=== PATIENT | female | born 1995 | race Caucasian/White ===

== ENCOUNTER 2018-12-03 17:30 | Emergency (ER) | payer OTHER ==
[~2018-12-03] VITALS: Ht 165.1 cm; Wt 52.2 kg
[2018-12-03 17:35] VITALS: BP 132/82
[2018-12-03] MEDS ORDERED: BUSPAR10 MG ORAL (17:42)
[2018-12-03] MEDS ORDERED: ABILIFY10 MG ORAL (17:42)
--- NOTE | 2018-12-03 17:53 | Emergency Room Report ---
History of Present Illness General Chief Complaint: Behavioral Complaint Source: Patient Present Illness HPI 23-year-old female history of anxiety, depression, no suicidal attempts in the past, presents with suicidal ideations that started today, she states is been building, she has no access to weapons, no ingestions today, she states that she is worried about money, she is worried about her job, that tend to aggravate her depression, she denies any alleviating factors, she has no other complaints, no nausea no vomiting, no chest pain, no shortness of breath, no abdominal pain Allergies: Coded Allergies: PENICILLINS (Verified Allergy, Mild, Rash, 12/03/18) Patient History Past Medical History: see triage record Social History: Reports: alcohol use - social Last Menstrual Period: now Now: No Reviewed Nursing Documentation: PMH: Agreed; PSxH: Agreed Nursing Documentation-PMH Past Medical History: No History, Except For History Of Psychiatric Problem: Yes - anxiety, depression Review of Systems Constitutional: Denies: chills, fever Eye: Denies: blurred vision, double vision ENT: Denies: throat pain, nasal discharge Respiratory: Denies: cough, shortness of breath Cardiovascular: Denies: chest pain, palpitations Gastrointestinal: Denies: abdominal pain, diarrhea, nausea, vomiting Genitourinary: Denies: dysuria, pain Musculoskeletal: Denies: back pain, muscle pain Skin: Denies: rash, lesions Psychiatric: Reports: anxiety, depressed feelings, SI; Denies: HI Neurological: Denies: headache, focal weakness Hematologic/Lymphatic: Denies: easy bleeding, easy bruising All Other Systems: negative except mentioned in HPI Physical Exam Vital Signs Date Time Temp Pulse Resp B/P (MAP) Pulse Ox O2 Delivery O2 Flow Rate FiO2 12/03/18 17:35 98.1 94 18 132/82 (99) 98 Room Air Sp02 EP Interpretation: reviewed, normal General Appearance: well appearing, alert, mild distress Head: normocephalic, atraumatic Eyes: bilateral eye PERRL, bilateral eye EOMI ENT: normal pharynx, uvula midline, moist mucus membranes Neck: supple, thyroid normal, supple/symm/no masses Respiratory: lungs clear, no respiratory distress, no retraction, no accessory muscle use Cardiovascular #1: normal peripheral pulses, regular rate, rhythm, no edema, no gallop, no murmur Gastrointestinal: non tender, soft, no guarding, no rebound Musculoskeletal: normal inspection Neurologic: alert, oriented x3 Psychiatric: depressed affect, anxious, other - Suicidal Skin: no rash, warm/dry Medical Decision Making Diagnostic Impression: Primary Impression: Suicidal ideations ER Course Patient with suicidal ideations, patient is medically cleared Labs show no focal findings, vital signs are stable Reevaluation 9:46 PM, PET team at bedside PET team [id number] at 10:23 PM Patient is medically clear to be transferred to a psychiatric facility Laboratory Tests Test 12/03/18 18:00 White Blood Count 7.5 K/UL (4.8-10.8) Red Blood Count 4.65 M/UL (4.20-5.40) Hemoglobin 13.2 G/DL (12.0-16.0) Hematocrit 39.4 % (37.0-47.0) Mean Corpuscular Volume 85 FL (80-99) Mean Corpuscular Hemoglobin 28.5 PG (27.0-31.0) Mean Corpuscular Hemoglobin Concent 33.6 G/DL (32.0-36.0) Red Cell Distribution Width 10.4 % (11.6-14.8) L Platelet Count 320 K/UL (150-450) Mean Platelet Volume 5.8 FL (6.5-10.1) L Neutrophils (%) (Auto) 63.8 % (45.0-75.0) Lymphocytes (%) (Auto) 27.1 % (20.0-45.0) Monocytes (%) (Auto) 6.9 % (1.0-10.0) Eosinophils (%) (Auto) 1.7 % (0.0-3.0) Basophils (%) (Auto) 0.4 % (0.0-2.0) Urine Color Pale yellow Urine Appearance Clear Urine pH 7 (4.5-8.0) Urine Specific [place] 1.005 (1.005-1.035) Urine Protein Negative (NEGATIVE) Urine Glucose (UA) Negative (NEGATIVE) Urine Ketones Negative (NEGATIVE) Urine Blood Negative (NEGATIVE) Urine Nitrite Negative (NEGATIVE) Urine Bilirubin Negative (NEGATIVE) Urine Urobilinogen Normal MG/DL (0.0-1.0) Urine Leukocyte Esterase Negative (NEGATIVE) Urine HCG, Qualitative Negative (NEGATIVE) Sodium Level 145 MMOL/L (136-145) Potassium Level 3.5 MMOL/L (3.5-5.1) Chloride Level 107 MMOL/L (98-107) Carbon Dioxide Level 27 MMOL/L (21-32) Anion Gap 11 mmol/L (5-15) Blood Urea Nitrogen 6 mg/dL (7-18) L Creatinine 0.8 MG/DL (0.55-1.30) Estimate Glomerular Filtration Rate > 60 mL/min (>60) Glucose Level 110 MG/DL (74-106) H Calcium Level 9.8 MG/DL (8.5-10.1) Total Bilirubin 0.5 MG/DL (0.2-1.0) Aspartate Amino Transferase (AST) 13 U/L (15-37) L Alanine Aminotransferase (ALT) 11 U/L (12-78) L Alkaline Phosphatase 75 U/L (46-116) Total Creatine Kinase 68 U/L (26-308) Total Protein 7.5 G/DL (6.4-8.2) Albumin 4.7 G/DL (3.4-5.0) Globulin 2.8 g/dL Albumin/Globulin Ratio 1.7 (1.0-2.7) Salicylates Level 0.3 ug/mL (2.8-20) L Urine Opiates Screen Negative (NEGATIVE) Acetaminophen Level < 2 MCG/ML (10-30) L Urine Barbiturates Screen Negative (NEGATIVE) Phencyclidine (PCP) Screen Negative (NEGATIVE) Urine Amphetamines Screen Negative (NEGATIVE) Urine Benzodiazepines Screen Negative (NEGATIVE) Urine Cocaine Screen Negative (NEGATIVE) Urine Marijuana (THC) Screen Negative (NEGATIVE) Serum Alcohol < 3 mg/dL EKG Diagnostic Results EKG Time: 18:02 EP Interpretation: Rate 85, QTc 442, no acute ST elevations normal axis Rate: normal Rhythm: NSR ST Segments: no acute changes Last Vital Signs Date Time Temp Pulse Resp B/P (MAP) Pulse Ox O2 Delivery O2 Flow Rate FiO2 12/03/18 17:35 98.1 94 18 132/82 (99) 98 Room Air Disposition: XFER TO PSYCH HOSP/UNIT Condition: Improved Patient Instructions: Self-Destructive Behavior Additional Instructions: The patient was provided with discharge instructions, notified to follow-up with a primary care doctor and or specialist in the next 24-48 hours, and to return to the ED if they have worsening of their symptoms. Please note that this report is being documented using DRAGON technology. This can lead to erroneous entry secondary to incorrect interpretation by the dictating instrument. French Martino M.D. Dec 03, 2018 17:53
[2018-12-03] MEDS: LORazepam 1mg tab ORAL ONE (18:00)
[2018-12-03 18:45] LABS: BASOPHILS % (AUTO) 0.4 % (0.0-2.0); EOSINOPHILS % (AUTO) 1.7 % (0.0-3.0); HEMATOCRIT 39.4 % (37.0-47.0); HEMOGLOBIN 13.2 G/DL (12.0-16.0); LYMPHOCYTES % (AUTO) 27.1 % (20.0-45.0); MEAN CORPUSCULAR VOLUME 85 FL (80-99); MONOCYTES % (AUTO) 6.9 % (1.0-10.0); NEUTROPHILS % (AUTO) 63.8 % (45.0-75.0); PLATELET COUNT 320 K/UL (150-450); RED BLOOD COUNT 4.65 M/UL (4.20-5.40); RED CELL DISTRIBUTION WIDTH 10.4 % (11.6-14.8); WHITE BLOOD COUNT 7.5 K/UL (4.8-10.8)
[2018-12-03 18:47] LABS: APPEARANCE,URINE CLEAR; BILIRUBIN, URINE NEGATIVE (NEGATIVE); COLOR,URINE PALE YELLOW; GLUCOSE, URINE (UA) NEGATIVE (NEGATIVE); KETONES,URINE NEGATIVE (NEGATIVE); LEUKOCYTE ESTERASE ,URINE NEGATIVE (NEGATIVE); NITRITE,URINE NEGATIVE (NEGATIVE); PH,URINE 7 (4.5-8.0); PROTEIN,URINE NEGATIVE (NEGATIVE); UROBILINOGEN,URINE NORMAL MG/DL (0.0-1.0)
[2018-12-03 18:55] LABS: ANION GAP 11 mmol/L (5-15); BLOOD UREA NITROGEN 6 mg/dL (7-18); CALCIUM 9.8 MG/DL (8.5-10.1); CARBON DIOXIDE 27 MMOL/L (21-32); CHLORIDE 107 MMOL/L (98-107); CREATININE 0.8 MG/DL (0.55-1.30); POTASSIUM 3.5 MMOL/L (3.5-5.1); SODIUM 145 MMOL/L (136-145)
[2018-12-03 19:01] LABS: ALANINE AMINOTRANSFERASE 11 U/L (12-78); ALBUMIN 4.7 G/DL (3.4-5.0); ALBUMIN/GLOBULIN RATIO 1.7 (1.0-2.7); ALKALINE PHOSPHATASE 75 U/L (46-116); ASPARTATE AMINO TRANSFERASE 13 U/L (15-37); BILIRUBIN,TOTAL 0.5 MG/DL (0.2-1.0); CREATINE KINASE 68 U/L (26-308)
[2018-12-03 19:34] VITALS: BP 128/86
[2018-12-03 20:00] VITALS: BP 112/69
[2018-12-03 21:25] VITALS: BP 130/82
[2018-12-03 22:50] VITALS: BP 120/84
[2018-12-03 23:48] VITALS: BP 125/89
[2018-12-04] VITALS: BP 125/89
== END 2018-12-04 ==
LOC: EMR 18:13
DX: R45.851 Suicidal ideations (principal); F41.9 Anxiety disorder, unspecified; F32.9 Major depressive disorder, single episode, unspecified
CPT/HCPCS: 36415; 80053; 80307; 81003; 81025; 82550; 85025; 93005; 99285; G0480; 80329